=== PATIENT | female | born 1980 | race Caucasian/White ===

== ENCOUNTER 2017-04-03 14:07 | Emergency (ER) | payer OTHER ==
[~2017-04-03] VITALS: Ht 160 cm; Wt 87.6 kg
[2017-04-03 14:12] VITALS: TEMP 36.7; Ht 160 cm; Wt 87.6 kg
[2017-04-03] MEDS ORDERED: ACET-1311 PO (14:26)
[2017-04-03] MEDS ORDERED: CALC500C3 PO (14:26)
[2017-04-03] MEDS ORDERED: EFF75 PO (14:26)
[2017-04-03] MEDS ORDERED: HYDR50CA2 PO (14:26)
[2017-04-03] MEDS ORDERED: ALBINS/ INH (14:26)
[2017-04-03] MEDS ORDERED: WARF-237 PO (14:26)
[2017-04-03 15:03] LABS: HEMATOCRIT 37.1 % (37-47); MEAN CELL VOLUME 82.8 fL (80-100); MEAN CORPUSCULAR HEMOGLOBIN 27.2 pg (25-34); MEAN CORPUSCULAR HGB CONC 32.9 g/dl (32-36); MEAN PLATELET VOLUME 8.9 fL (7.4-10.4); PLATELET COUNT 322 K/uL (130-400); RED BLOOD COUNT 4.48 M/uL (4.2-5.4)
[2017-04-03 15:10] VITALS: O2SAT 98
[2017-04-03 15:15] LABS: POINT OF CARE TROPONIN I < 0.030 ng/ml (0-0.045)
[2017-04-03 15:16] LABS: INR 1.1 (0.9-1.1); PARTIAL THROMBOPLASTIN RATIO 0.9; PROTHROMBIN TIME (PATIENT) 12.1 SECONDS (9.0-12.0)
[2017-04-03 15:19] LABS: BUN/CREATININE RATIO 15.1 (10-20); CREATININE 0.83 mg/dl (0.60-1.20); POTASSIUM 3.8 mmol/L (3.5-5.1)
[2017-04-03 15:24] LABS: ALB/GLOB RATIO 0.9 (0.9-2); CKMB/CK RATIO 1.3 (0-3.0)
--- NOTE | 2017-04-03 15:33 | EMERGENCY ROOM VISIT NOTE ---
History Report prepared by Avinash: Dafne Gomez Under the Supervision of: Dr. Xu Nelson M.D. First contact with patient: 14:58 Chief Complaint: HYPERTENSION Stated Complaint: ELEVATED BP History of Present Illness The patient is a 37 year old female who presents to the Emergency Room with complaints of persistent hypertension beginning earlier today. Last night the patient had sharp pains under her left breast and became short of breath. She did a breathing treatment at that time. She woke up today with the same pain and her blood pressure was 140s systolic. The patient states that this is very high for her, as she typically runs around 100 systolic. She rates her current pain as a 6/10 in severity. The patient also reports an intermittent headache for the past week. She has a history of PEs and Factor V. Source of History: patient Onset: earlier today Position: other (global) Symptom Intensity: 6/10 Quality: other (hypertension) Timing: other (persistent) Associated Symptoms: + headache, + chest pain, + SOB Review of Systems All systems have been listed, reviewed, and are negative other than those previously mentioned. Please see Additional Medical History Sheet. Past Medical & Surgical Medical Problems: (1) Asthma (2) Factor V Leiden (3) Hemifacial spasm (4) Pulmonary emboli Family History Cancer Diabetes mellitus Heart disease Hypertension Kidney disease Kidney stones Lung disease Social History Smoking Status: Never Smoker Smokeless Tobacco Use: No Alcohol Use: none Housing Status: other (incarcerated) Occupation Status: other (incarcerated) Current/Historical Medications Scheduled Acetaminophen (Tylenol), 650 MG PO BID Hydroxyzine Pamoate (Vistaril), 50 MG PO HS Venlafaxine Hcl (Effexor), 75 MG PO DAILY Warfarin Sod (Coumadin), 10 MG PO DAILY Warfarin Sodium (Warfarin Sodium), 1.5 TABS PO HS Scheduled PRN Albuterol Sulf (Proventil 0.083% 2.5MG/3ML), 2.5 MG INH QID PRN for SOB/Wheezing Calcium Carbonate (Tums), 1 TAB PO TID PRN for HEARTBURN Allergies Coded Allergies: No Known Allergies (Unverified , 04/03/17) Physical Exam Vital Signs Date Time Temp Pulse Resp B/P (MAP) Pulse Ox O2 Delivery O2 Flow Rate FiO2 04/03/17 16:40 89 20 122/92 98 04/03/17 15:10 89 20 99 Room Air 04/03/17 15:10 98 Room Air 04/03/17 14:40 94 24 126/85 98 Room Air 04/03/17 14:12 36.7 103 16 120/86 98 Room Air Physical Exam GENERAL: Patient awake, alert, oriented x 3. Patient follows commands. Patient does not appear toxic. Patient is adequately hydrated and well- nourished. SKIN: No erythema, pallor, cyanosis or rash HEENT: Normal head, pupils equal, reactive to light and accommodation. Ptosis in the right eye. Ears normal. Oral cavity and posterior pharynx appear normal. Patient is missing multiple teeth. Neck: Without adenopathy, no neck vein distention. LUNGS: Clear to auscultation. No wheezes, no rales, no rhonchi. HEART: No murmurs. No gallops. No rubs ABDOMEN: No masses, no rebound, no hepatomegaly or splenomegaly. EXTREMITIES: No signs of trauma. No pedal or pretibial edema. No calf or thigh tenderness. NEUROLOGIC: Cranial nerves II-XII within normal limits. No gross motor sensory function deficits. Medical Decision & Procedures ER Provider Diagnostic Interpretation: Radiology results as stated below per my review and radiologist interpretation: CHEST 2 VIEWS ROUTINE CLINICAL HISTORY: chest pain dyspnea COMPARISON STUDY: No previous studies for comparison. FINDINGS: The bones soft tissues and hemidiaphragms are normal. The cardiomediastinal silhouette is normal. The lungs are clear. The pulmonary vasculature is normal. IMPRESSION: Negative chest. The above report was generated using voice recognition software. It may contain grammatical, syntax or spelling errors. Electronically signed by: Paresh Modi M.D. 04/03/2017 3:44 PM Dictated Date/Time: 04/03/2017 3:43 PM Laboratory Results 04/03/17 14:50 04/03/17 14:50 Test 04/03/17 14:50 04/03/17 14:56 Red Blood Count 4.48 M/uL (4.2-5.4) Mean Corpuscular Volume 82.8 fL (80-100) Mean Corpuscular Hemoglobin 27.2 pg (25-34) Mean Corpuscular Hemoglobin Concent 32.9 g/dl (32-36) RDW Standard Deviation 45.4 fL (36.4-46.3) RDW Coefficient of Variation 15.0 % (11.5-14.5) Mean Platelet Volume 8.9 fL (7.4-10.4) Prothrombin Time 12.1 SECONDS (9.0-12.0) Prothromb Time International Ratio 1.1 (0.9-1.1) Activated Partial Thromboplast Time 24.5 SECONDS (21.0-31.0) Partial Thromboplastin Ratio 0.9 Anion Gap 4.0 mmol/L (3-11) Est Creatinine Clear Calc Drug Dose 98.3 ml/min Estimated GFR () 105.1 Estimated GFR (Non- 90.7 BUN/Creatinine Ratio 15.1 (10-20) Calcium Level 9.0 mg/dl (8.5-10.1) Total Bilirubin 0.2 mg/dl (0.2-1) Aspartate Amino Transf (AST/SGOT) 11 U/L (15-37) Alanine Aminotransferase (ALT/SGPT) 21 U/L (12-78) Alkaline Phosphatase 68 U/L (45-117) Total Creatine Kinase 55 U/L (26-192) Creatine Kinase MB 0.7 ng/ml (0.5-3.6) Creatine Kinase MB Ratio 1.3 (0-3.0) Total Protein 7.4 gm/dl (6.4-8.2) Albumin 3.5 gm/dl (3.4-5.0) Globulin 3.9 gm/dl (2.5-4.0) Albumin/Globulin Ratio 0.9 (0.9-2) Bedside D-Dimer 278 ng/mlFEU (0-450) Bedside Troponin I < 0.030 ng/ml (0-0.045) Laboratory results as stated above per my review. ECG Indication: chest pain Rate (beats per minute): 91 Rhythm: normal sinus Findings: no acute ischemic change, no ectopy ED Course 1458: Past medical records reviewed. The patient was evaluated in room B5. A complete history and physical examination was performed. 1611: I reassessed the patient at this time. She is feeling better and resting comfortably. I discussed the results and treatment plan with the patient. I answered all pertaining questions that she had. She expressed understanding and verbalized agreement. The patient will be discharged into the custody of the [employer]'s Officers at bedside. Medical Decision I considered multiple diagnoses including myocardial infarction, chest wall pain , pericarditis, myocarditis, aortic emergencies, pulmonary embolism, congestive heart failure, GI causes, hypertension, and other significant cardiopulmonary disorders. The patient has a prior history of PEs. The patient is not short of breath. Chest pain is midsternal without radiation. The patient is more concerned about hypertension. The patient states that she is not being given Coumadin correctly. She normally takes 15-20 mg of Coumadin daily but has only been given 10 mg daily while in correction. She also has her INR checked weekly. The patient was given 15 mg of Coumadin here. She will continue that dosage at the correction every evening. The patient has no evidence of acute cardiopulmonary event. Her Wells score is low. D-dimer is negative. I do not believe she needs a CT. The patient's blood pressure has been normal. I believe that she can safely return to correction as long as she gets the Coumadin as prescribed. Medication Reconcilliation Current Medication List: was personally reviewed by me Blood Pressure Screening Patient's blood pressure: Normal blood pressure Blood pressure disposition: Did not require urgent referral Impression Primary Impression: Precordial chest pain Scribe Attestation The scribe's documentation has been prepared under my direction and personally reviewed by me in its entirety. I confirm that the note above accurately reflects all work, treatment, procedures, and medical decision making performed by me. Departure Information Dispostion Home / Self-Care Prescriptions Warfarin Sodium (WARFARIN SODIUM) 10 Mg Tab 1.5 TABS PO HS for 30 Days, #45 TABS Prov: Xu Nelson M.D. 04/03/17 Referrals [facility] (PCP) Forms HOME CARE DOCUMENTATION FORM, IMPORTANT VISIT INFORMATION, WORK / SCHOOL INSTRUCTIONS Patient Instructions My [facility] [employer] Additional Instructions 15 mg of Coumadin every evening. INR should be checked within the next 4 days. Continue all other medications as prescribed.
--- NOTE | 2017-04-03 15:45 | DIAGNOSTIC IMAGING REPORT ---
CHEST 2 VIEWS ROUTINE CLINICAL HISTORY: chest pain dyspnea COMPARISON STUDY: No previous studies for comparison. FINDINGS: The bones soft tissues and hemidiaphragms are normal. The cardiomediastinal silhouette is normal. The lungs are clear. The pulmonary vasculature is normal. IMPRESSION: Negative chest. The above report was generated using voice recognition software. It may contain grammatical, syntax or spelling errors. Electronically signed by: Paresh Modi M.D. 04/03/2017 3:44 PM Dictated Date/Time: 04/03/2017 3:43 PM
[2017-04-03] MEDS ORDERED: WARF-281 PO (16:24)
[2017-04-03 16:40] VITALS: BP 122/92; PULSE 89; O2SAT 98
== END 2017-04-03 16:42 | disposition home or self-care (01) ==
LOC: C.EDB 14:13
DX: R07.2 Precordial pain (principal); D68.51 Activated protein C resistance; J45.909 Unspecified asthma, uncomplicated; Z86.711 Personal history of pulmonary embolism; Z83.3 Family history of diabetes mellitus; Z82.49 Family history of ischemic heart disease and other diseases of the circulatory system; Z84.1 Family history of disorders of kidney and ureter; Z79.01 Long term (current) use of anticoagulants